=== PATIENT | female | born 1935 | race Caucasian/White ===

== ENCOUNTER 2016-12-29 18:01 | Emergency (ER) | payer MEDICARE, OTHER ==
[2016-12-29 18:12] VITALS: BP 126/77
--- NOTE | 2016-12-29 19:06 | UC ---
Skin Complaint HPI - HPI Summary HPI Summary: NOTICED RASH ON LEFT ABDOMEN SEVERAL DAYS AGO. TODAY IN THE POOL SOMEONE NOTICED IT ON HER BACK WELL. NOT PAINFUL. NOT ITCHY. NO FEVER. - History of Current Complaint Chief Complaint: UCRash Time Seen by Provider: 12/29/16 18:54 Stated Complaint: SORES-SHINGLES? Hx Obtained From: Patient Onset/Duration: Sudden Onset, Lasting Days, Still Present Timing: Constant Onset Severity: Mild Current Severity: Mild Pain Intensity: 0 Pain Scale Used: 0-10 Numeric Location: Discrete - LEFT ABD WRAPPING AROUND TO LEFT BACK Character: Redness Aggravating: Nothing Alleviating: Nothing Associated Signs & Symptoms: Positive: Rash - Allergy/Home Medications Allergies/Adverse Reactions: Allergies Allergy/AdvReac Type Severity Reaction Status Date / Time Shellfish Allergy Allergy Unknown Unknown Verified 12/29/16 18:12 Reaction Details Review of Systems Constitutional: Negative Skin: Rash Respiratory: Negative Cardiovascular: Negative Gastrointestinal: Negative All Other Systems Reviewed And Are Negative: Yes PMH/Surg Hx/FS Hx/Imm Hx Cardiovascular History: Hypertension Other History Of: Negative For: Anticoagulant Therapy - Surgical History Surgical History: Yes Surgery Procedure, Year, and Place: d&c, bilateral knee replacement - Social History Alcohol Use: None Substance Use Type: None Smoking Status (MU): Never Smoked Tobacco Have You Smoked in the Last Year: No Physical Exam Triage Information Reviewed: Yes Appearance: Well-Appearing, No Pain Distress, Well-Nourished Vital Signs: Initial Vital Signs Temp 98.7 F 12/29/16 18:08 Pulse 60 12/29/16 18:08 Resp 18 12/29/16 18:08 BP 126/77 12/29/16 18:08 Pulse Ox 96 12/29/16 18:08 Vital Signs Reviewed: Yes Eyes: Positive: Conjunctiva Clear ENT: Positive: Hearing grossly normal Neck: Positive: Supple Respiratory: Positive: No respiratory distress, No accessory muscle use Cardiovascular: Positive: Pulses Normal Abdomen Description: Positive: Soft Musculoskeletal: Positive: No Edema Neurological: Positive: Alert Psychological: Positive: Age Appropriate Behavior Skin: Positive: rashes - CLUSTER OF VESICLES WITH MILD EXCORIATION LEFT ABDOMEN WRAPPING AROUND TO LEFT FLANK. NON TENDER. Course/Dx - Diagnoses Provider Diagnoses: SHINGLES Discharge - Discharge Plan Condition: Stable Disposition: HOME Patient Education Materials: Shingles (ED) Referrals: Renetta Hermosillo MD [Primary Care Provider] - If Needed Additional Instructions: GIVEN YOUR RASH HAS BEEN PRESENT FOR MORE THAN 3 DAYS THERE IS NO INDICATION TO TREAT YOU. IT IS NOT GIVING YOU ANY DISCOMFORT SO JUST BE SURE TO KEEP IT COOL, CLEAN AND DRY AND IT SHOULD CONTINUE TO DRY UP AND RESOLVE. IF IT DOES CAUSE SOME DISCOMFORT OTC MEDS NEEDED.
== END 2016-12-29 19:12 | disposition home or self-care (01) ==
LOC: UCEAST 18:01
DX: B02.9 Zoster without complications (principal)
CPT/HCPCS: 99211; G0463